=== PATIENT | male | born 1960 | race Caucasian/White ===

== ENCOUNTER 2017-04-20 05:58 | Inpatient (IN) ==
[2017-04-20] MEDS ORDERED: CeFAZolin Syr 2,000MG/20 ML 2,000 MG/20 ML SYRINGE IVPB ONE (06:17)
[2017-04-20] MEDS ORDERED: Albuterol 2.5 MG/3 ML NEBULIZER IH ONE (06:18)
[2017-04-20] MEDS ORDERED: Ringers Solution, Lactated 1,000 ML IVC SCH (06:30)
[2017-04-20] MEDS ORDERED: Plasma-Lyte A (PH 7.4) 1,000 ML IVC SCH (07:00)
[2017-04-20] MEDS ORDERED: Lidocaine -MPF 4% 5 ML AMPUL ONE (07:03)
[2017-04-20] MEDS ORDERED: *HR* Midazolam HCl 2 MG/2 ML VIAL ONE (07:05)
[2017-04-20] MEDS ORDERED: *HR* Propofol 200 MG/20 ML VIAL IVP ONE ×2 (07:05→08:34)
[2017-04-20] MEDS ORDERED: *HR* FentaNYL (PF) 100 MCG/2 ML VIAL ONE ×2 (07:05→08:34)
[2017-04-20] MEDS ORDERED: Ondansetron 4 MG/2 ML VIAL ONE (07:08)
[2017-04-20] MEDS ORDERED: Dexamethasone 4 MG/ML VIAL ONE (07:08)
[2017-04-20] MEDS ORDERED: Lidocaine -MPF 2% 2 ML VIAL ONE ×2 (07:08→10:12)
[2017-04-20] MEDS ORDERED: *HR* Rocuronium Bromide 50 MG/5 ML VIAL ONE (07:08)
[2017-04-20] MEDS ORDERED: *HR* Succinylcholine 200 MG/10 ML VIAL IVP ONE (07:08)
[2017-04-20] MEDS ORDERED: *HR* Remifentanil 2 MG VIAL IVP ONE ×4 (07:13→12:11)
--- NOTE | 2017-04-20 07:34 | History & Physical Report ---
Date of Encounter: 04/20/17 Time of Encounter: 07:33 24 Hour HP Update - Instructions Instructions: If the History and Physical is less than 30 days old and was completed prior to A.M. admission and or procedure and has NOT been updated on calendar day of procedure please complete this update prior to performing procedure. - Update Patient reports changes in Medical Condition: No Changes in examination, assessment, or condition: No Changes in Medication: No Preop tests/diagnostics Reviewed: Yes Pre-Op MRSA Screen: Negative Surgery Remains Indicated: Yes Consent for Planned Operative Procedure(s) Verified: Yes - Pre-Operative Checklist Preoperative Checklist Indicated: No Prophylactic Antibiotic Ordered: Yes Home Medications Include Beta Michaelle: No Beta Michaelle Taken Today (Day of Surgery): No Beta Michaelle Taken Yesterday (Day Prior to Surgery): No Is VTE Prophylaxis Indicated?: Yes
--- NOTE | 2017-04-20 07:40 | Anesthesia Evaluation PreOp ---
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 HX Other Medical History: Denies Any Significant HX, Other (TRUNCAL OBESITY) Anesthesia History: No Prior Anesthetic Complications Alcohol Use: none Drug use: none Medications and Allergies Albuterol Neb [Proventil Neb] 2.5 mg IH Q6H PRN 12/02/15 [History] Albuterol Sulfate [Ventolin Hfa] 2 puff IH Q6H PRN 12/02/15 [History] Budesonide/Formoterol 160/4.5 [Symbicort 160/4.5] 2 puff IH BIDR 12/02/15 [ History] 3 Allergy/AdvReac Type Severity Reaction Status Date / Time naproxen [From Naprosyn] Allergy Swelling Verified 04/20/17 06:19 of Lip/Tongue/Throat gabapentin AdvReac Nausea Verified 04/20/17 06:19 Oxymorphone [From Opana] AdvReac See Verified 04/20/17 06:19 Comments pregabalin [From Lyrica] AdvReac Nightmare Verified 04/20/17 06:19 - Meds/Allergy Pre-op Review Medications Reviewed: Yes Allergies Reviewed: Yes Anesthesia Results - Labs Laboratory Tests 04/12/17 04/12/17 10:20 10:20 Hgb 15.8 Hct 47.9 Plt Count 293 Sodium 139 Potassium 3.9 BUN 12 Creatinine 0.78 - Imaging Additional studies: EKG 11/2015: SINUS RHYTHM Anesthesia Exam O2 Sat Height 1.73 m Height 1.73 m Height 1.73 m Weight 115.666 kg Weight 116 LBS BMI 39 O2 Sat by Pulse Oximetry 97 O2 Sat by Pulse Oximetry 97 Vital Signs Temp Pulse Resp BP Pulse Ox 99.1 F 79 18 127/69 97 04/20/17 06:24 04/20/17 06:24 04/20/17 06:24 04/20/17 06:24 04/20/17 06:24 NPO (# of Hours): > 2300 - HEENT Mallampati: I Teeth: Missing, Poor dentition - [employer]NAGER LOC: Oriented - Cardiac Rhythm: Regular - Pulmonary Breath Sounds: bilateral Rhonchi Respiratory Effort: Symmetrical Anesthesia Assess/Plan ASA Score: 3 Modified [place] Scale for Level of Consciousness: Cooperative, oriented, and tranquil Anesthetic Plan: General Monitoring Plan: Standard Monitors Recovery Plan: PACU Anes Supervising Prov Stmt: I have participated in the evaluation of this patient.
[2017-04-20] MEDS ORDERED: Bacitracin 50,000 UNIT, Polymyxin B Sulfate 500,000 UNIT, Sodium Chloride IRRigation 1,... IR ONE (07:45)
[2017-04-20] MEDS ORDERED: Heparin 1,000 UNITS/500 mL 500 ML ONE (07:58)
[2017-04-20] MEDS ORDERED: Propofol 500 MG/50 ML INFUS..BTL ONE ×6 (08:13→12:36)
[2017-04-20] MEDS ORDERED: Albumin Human 5% 37.5 GM/750 ML VIAL ONE (08:26)
[2017-04-20] MEDS ORDERED: Dexmedetomidine HCl 200 MCG/50 ML MLS IVC ONE (08:45)
[2017-04-20] MEDS ORDERED: *HR* Phenylephrine 10 MG/ML VIAL ONE (09:20)
[2017-04-20 10:56] LABS: Basophils # 0.1 K/mcL (0.0-0.2); Basophils % 0.6 %; Eosinophils # 0.2 K/mcL (0.0-0.6); Eosinophils % 2.1 %; Hematocrit 41.5 % (37.5-50.1); Hemoglobin 14.1 g/dL (12.9-16.9); Immature Granulocytes % 0.8 % (0-4); Lymphocytes # 1.9 K/mcL (0.6-4.6); Lymphocytes % 21.8 %; Mean Corpuscular Hemoglobin 32.6 pg (28.0-33.3); Mean Corpuscular Volume 96.1 fL (83.0-100.0); Mean Platelet Volume 9.3 fL (9.4-12.4); Monocytes # 0.5 K/mcL (0.0-1.3); Monocytes % 5.5 %; Neutrophils # 6.1 K/mcL (1.6-8.9); Platelet Count 319 K/mcL (140-400); Red Blood Count 4.32 M/mcL (4.19-5.50); Segmented Neutrophils % 69.2 %
[2017-04-20] MEDS ORDERED: *HR* Magnesium Sulfate 1 GM/2 ML VIAL ONE (11:00)
[2017-04-20] MEDS ORDERED: Dexamethasone 4 MG/ML VIAL IVP ONE (11:03)
[2017-04-20] MEDS ORDERED: *HR* Labetalol 20 MG/4 ML SYRINGE IVP PRN (11:03)
[2017-04-20] MEDS ORDERED: Ondansetron 4 MG/2 ML VIAL IVP ONE (11:03)
[2017-04-20] MEDS ORDERED: *HR* OxyCODONE Immed Rel 5 MG TABLET PO PRN (11:03)
[2017-04-20 11:10] LABS: Alanine Aminotransferase 11 Units/L (7-52); Albumin 3.4 g/dL (3.5-5.7); Albumin/Globulin Ratio 1.6 (1.1-2.2); Alkaline Phosphatase 60 Units/L (34-104); Aspartate Amino Transferase 14 Units/L (13-39); BUN/Creatinine Ratio 18 (6-26); Bilirubin,Total 0.5 mg/dL (0.3-1.0); Blood Urea Nitrogen 15 mg/dL (6-20); Calcium 8.2 mg/dL (8.6-10.3); Carbon Dioxide 22 mEq/L (23-29); Chloride 109 mEq/L (98-107); Globulin 2.1 g/dL (2.4-3.5); Glucose 98 mg/dL (70-105); Magnesium 1.8 mg/dL (1.6-2.6); Osmolality,Calculated 285 (280-300); Potassium 3.9 mEq/L (3.5-5.1); Sodium 137 mEq/L (136-145); Total Protein 5.5 g/dL (6.4-8.9); eGFR For African Americans > 60 (> 60); eGFR For Non-African Americans > 60 (> 60)
[2017-04-20] MEDS ORDERED: Acetaminophen IV 1,000 MG/100 ML INFUS..BTL ONE (11:31)
[2017-04-20] MEDS ORDERED: *HR* Morphine 10 MG/ML VIAL ONE (12:52)
--- NOTE | 2017-04-20 13:13 | Orthopedic Operative Note ---
Date of procedure: 04/20/17 Pre-op diagnosis: Cervical stenosis, cervical myelopathy Post-op diagnosis: same Operation/Findings: Posterior cervical fusion C3-C7: Patient was brought to the operative theater where he successfully underwent general endotracheal intubation. He was given antibiotics prior to the start of the procedure. Compression boots and stockings were used for deep vein thrombosis prophylaxis. A Steward catheter was placed. Leads were placed on the upper extremities and lower extremities as well as the cranium. The neurologic monitoring personnel confirmed satisfactory readings prior to the start of the procedure. The patient was turned prone on the operative table. The area from the mid occipital to the mid thoracic spine was prepped and draped in the usual sterile fashion posteriorly. An incision was made and centered over the C3-C7 cervical spinous processes in the midline. The scoring incision was deepened through the cervical fascia. We used Bovie cautery and Smith elevators to carefully dissect the lateral masses and expose them from C3-C7. Radiographic confirmation was confirmed by the radiologist via a discussion. We then placed lateral mass screws at C3, C4, C5, C6, and C7 bilaterally using standard techniques. Ten separate 3.5 x 12 mm lateral mass screws were placed uneventfully and confirmed via fluorographic views as having satisfactory placement. After placement of the lateral mass screws, we turned our attention to the decompression. We removed the ligamentum flavum and interspinous and supraspinous ligaments at C6- 7. We proceeded proximally with the decompression. This includes a laminectomy of C6, C5, C4, and C3. All intervening ligamentum flavum and ligamentous material was removed. Bone obtained from the laminectomies was saved in a separate sterile container for later use. After the decompression, the spinal cord could be clearly visualized from C3-C7 and was fully decompressed and expanded. It was seen to expand nicely. We copiously irrigated the wound. We then decorticated the facet joints and lateral masses from C3-4, C4-5, C5-6, and C6-7 bilaterally until bleeding bone was obtained. We then used the autograft bone obtained from the laminectomy/decompression from C3-C7 and placed it over the lateral masses and facet joints in these regions. We then placed rods within the screw heads from C3-C7 bilaterally. We subsequently placed screw caps over the Rods and locked and finally tightened the construct in standard fashion. We then closed the wound in layers with 1 Vicryl for the Fascia, 2-0 Vicryl for the more superficial fascia and 2-0 Vicryl was used for skin closure. Dermabond was paced over the wound. Sterile dressing was placed over the wound as well. Cervical collar was placed. Patient was turned supine and extubated on the Hospital Bed. The patient was in good condition at the end of the procedure. All sponge counts, needle counts, and Instruments were correct at the end of the procedure. Anesthesia: GETA Surgeon: Raul Avalos Jr Was there an drafter assistant present: No Estimated blood loss (cc): 200 Specimen: None Condition: stable Disposition: PACU
[2017-04-20] MEDS: MORPHINE SUL Oral CONC 10 MG/0.5 ML ORAL.SYG SL PRN ×2 (13:32→13:42)
[2017-04-20] MEDS: *HR* Promethazine 25 MG/ML VIAL IVP PRN ×2 (13:54→13:59)
--- NOTE | 2017-04-20 14:24 | Anesthesia Evaluation Post Op ---
Date of Encounter: 04/20/17 Time of Encounter: 14:22 - Vital Signs Vital Signs: REVIEWED Notes: 04/20/17 14:24 Patient's vital signs have been reviewed. Patient is stable postoperatively and has adequately recovered from anesthesia, unless otherwise noted. Patient is determined to have stable airway patency and respiratory function including respiratory rate and oxygen saturation. Patient has a stable heart rate, blood pressure and adequate hydration. Patients mental status is acceptable. Patients temperature is appropriate. Pain and nausea are adequately controlled. - Discharge PostOp Status: Transfer Patient to floor
[2017-04-20] MEDS ORDERED: Acetaminophen 325 MG TABLET PO PRN (14:25)
[2017-04-20] MEDS ORDERED: Ondansetron 4 MG/2 ML VIAL IVP PRN (14:25)
[2017-04-20] MEDS ORDERED: Naloxone 0.4 MG/ML INJ IVP PRN (14:25)
[2017-04-20] MEDS: Ringers Solution, Lactated 1,000 ML IVC SCH ×2 (15:21→23:27)
[2017-04-20] MEDS ORDERED: *HR* OxyCODONE Immed Rel 5 MG TABLET PO SCH (16:00)
[2017-04-20] MEDS ORDERED: *HR* HYDROcodone/Acet 5/325 mg TABLET PO PRN (16:00)
[2017-04-20] MEDS ORDERED: Albuterol 2.5 MG/3 ML NEBULIZER IH PRN (16:00)
[2017-04-20] MEDS: *HR* HYDROcodone/Acet 5/325 mg TABLET PO PRN ×2 (16:28→20:32)
[2017-04-20] MEDS: ceFAZolin 1,000 MG in Water for inj. (sterile) 20 ML 10 ML IVP SCH ×2 (17:16→23:27)
[2017-04-20] MEDS: *HR* OxyCODONE Immed Rel 5 MG TABLET PO PRN ×2 (17:26→21:32)
[2017-04-20] MEDS: Budesonide/Formoterol 160/4.5 MDI IH SCH (20:25)
[2017-04-21] MEDS: *HR* OxyCODONE Immed Rel 5 MG TABLET PO PRN ×2 (01:56→06:37)
[2017-04-21 06:36] VITALS: BP 119/81
[2017-04-21] MEDS: *HR* HYDROcodone/Acet 5/325 mg TABLET PO PRN (09:46)
--- NOTE | 2017-04-21 10:30 | Discharge Summary ---
- NOTES TO OUTPATIENT PROVIDER Notes to Outpatient Provider: Follow-up and [facility] Center in 2 weeks Date of Encounter: 04/21/17 Time of Encounter: 10:27 - Discharge Diagnosis (1) Cervical stenosis of spine Priority: Primary Status: Chronic (2) Cervical myelopathy Priority: Secondary Status: Chronic - Hospital Course Hospital course: Mr. Hernandez is a 56 year old male The patient had an uneventful postoperative course. Progressed from intravenous analgesic needs to oral analgesic needs only. Remained neurovascularly intact and mobilized satisfactorily. All intraoperative and/or postoperative radiographic studies were satisfactory. Patient is discharged with plan for rehabilitation and follow-up in 2 weeks post discharge on analgesic medication and patient's home medications. - Time Spent with Patient Total time spent providing and/or coordinating discharge services: - Discharge Medications Prescriptions: OxyCODONE Immed Rel [Roxicodone 5 MG] 5 mg PO Q4HR PRN 7 Days #30 tablet PRN Reason: Severe Pain Home Medications: Albuterol Neb [Proventil Neb] 2.5 mg IH Q6H PRN 12/02/15 [History] Albuterol Sulfate [Ventolin Hfa] 2 puff IH Q6H PRN 12/02/15 [History] Budesonide/Formoterol 160/4.5 [Symbicort 160/4.5] 2 puff IH BIDR 12/02/15 [ History] OxyCODONE Immed Rel [Roxicodone 5 MG] 5 mg PO Q4HR PRN 7 Days #30 tablet [Rx] Allergies/Adverse Reactions: 3 Allergy/AdvReac Type Severity Reaction Status Date / Time naproxen [From Naprosyn] Allergy Swelling Verified 04/20/17 06:19 of Lip/Tongue/Throat gabapentin AdvReac Nausea Verified 04/20/17 06:19 Oxymorphone [From Opana] AdvReac See Verified 04/20/17 06:19 Comments pregabalin [From Lyrica] AdvReac Nightmare Verified 04/20/17 06:19 Date of admission: 04/20/17 14:24 Primary care physician: Mansoor Sears MD Consults: 04/20/17 14:25 Consult to Occupational Therapy [CONS] Routine Comment: Evaluate, develop and implement POC Reason for Consult: Postoperative rehabilitation Does patient have active BEDREST order?: No Is patient medically & hemodynamically stable?: Yes Patient assessed for mobility or mobilized this visit?: No Consult to Physical Therapy [CONS] Routine Comment: Evaluate, develop and implement POC Reason for Consult: Postoperative rehabilitation Does patient have active BEDREST order?: No Is patient medically & hemodynamically stable?: Yes Patient assessed for mobility or mobilized this visit?: No Consult to Spine Navigator [CONS] [CONS] Routine 04/20/17 15:09 Consult to Nutrition [CONS] Routine Comment: Consulting Provider: NUTRITION Reason for Dietary Consult: MST Score - VTE Documentation of Mechanical Device: Graduated compression elastic hosiery Labs on day of discharge: Labs from last 24 hours 04/20/17 04/20/17 10:35 10:35 WBC 8.8 RBC 4.32 Hgb 14.1 Hct 41.5 MCV 96.1 MCH 32.6 MCHC 34.0 RDW 13.0 Plt Count 319 MPV 9.3 L Immature Gran % 0.8 Seg Neutrophils % 69.2 Lymphocytes % 21.8 Monocytes % 5.5 Eosinophils % 2.1 Basophils % 0.6 Neutrophils # 6.1 Lymphocytes # 1.9 Monocytes # 0.5 Eosinophils # 0.2 Basophils # 0.1 Sodium 137 Potassium 3.9 Chloride 109 H Carbon Dioxide 22 L BUN 15 Creatinine 0.85 Est GFR ( Amer) > 60 Est GFR (Non-Af Amer) > 60 BUN/Creatinine Ratio 18 Glucose 98 Calculated Osmolality 285 Calcium 8.2 L Magnesium 1.8 Total Bilirubin 0.5 AST 14 ALT 11 Alkaline Phosphatase 60 Serum Total Protein 5.5 L Albumin 3.4 L Globulin 2.1 L Albumin/Globulin Ratio 1.6 - Impressions ITS Impressions Cervical Spine X-Ray 04/20/17 00:00 IMPRESSION: Intraprocedural fluoroscopic spot images as above. See separate procedure report for more information. D/ / Steve Stark MD / Steve Stark MD Interpreting Provider: Steve Stark MD Fluoroscopy 04/20/17 00:00 IMPRESSION: Intraprocedural fluoroscopic spot images as above. See separate procedure report for more information. D/ / Steve Stark MD / Steve Stark MD Interpreting Provider: Steve Stark MD Cervical Spine X-Ray 04/21/17 09:14 IMPRESSION: 1. Status post posterior fusion of the cervical spine at C3 through C7. No obvious complication. 2. Degenerative changes at C2-3 as described. D/ : / 04/21/2017 09:19:44 Blanca Maddox MD / marian Interpreting Provider: Blanca Maddox MD - Patient Status Disposition: Home, Self-Care Condition: Good Functional capacity at discharge: independent ambulation Overall status at discharge: patient is progressing back to baseline - Discharge Instructions Follow Up With: Mansoor Sears MD [Primary Care Provider] - - Diet and Activity Activity: as per physical therapy Diet: advance to your usual diet
[2017-04-21] MEDS: Budesonide/Formoterol 160/4.5 MDI IH SCH (10:59)
== END 2017-04-21 12:30 | disposition home health service (06) | DRG 472 ==
LOC: SAMDAY 05:58 → 3NENU 14:24
PROVIDERS: ADMIT Orthopaedic Surgery Orthopaedic Surgery of the Spine; ATTEND Orthopaedic Surgery Orthopaedic Surgery of the Spine

== ENCOUNTER 2019-08-16 17:50 | Observation (INO) ==
[2019-08-16 18:17] LABS: Basophils % 0.2 %; Eosinophils # 0.1 K/mcL (0.0-0.6); Eosinophils % 1.5 %; Hematocrit 47.1 % (37.5-50.1); Hemoglobin 15.8 g/dL (12.9-16.9); Immature Granulocytes % 0.8 % (0-4); Lymphocytes # 1.3 K/mcL (0.6-4.6); Lymphocytes % 14.6 %; Mean Corpuscular HGB Conc 33.5 g/dL (31.6-35.5); Mean Corpuscular Hemoglobin 33.5 pg (28.0-33.3); Mean Platelet Volume 9.5 fL (9.4-12.4); Monocytes # 0.5 K/mcL (0.0-1.3); Monocytes % 5.8 %; Neutrophils # 6.9 K/mcL (1.6-8.9); Platelet Count 238 K/mcL (140-400); Red Blood Count 4.71 M/mcL (4.19-5.50); Red Cell Distribution Width 13.7 % (11.5-14.5); Segmented Neutrophils % 77.1 %; White Blood Count 8.9 K/mcL (4.3-11.1)
[2019-08-16] MEDS ORDERED: cefTRIAXone 1,000 MG in Water for inj. (sterile) 10 ML IVP ONE (18:19)
[2019-08-16 18:42] LABS: Alanine Aminotransferase 17 Units/L (7-52); Albumin 3.9 g/dL (3.5-5.7); Albumin/Globulin Ratio 1.4 (1.1-2.2); Alkaline Phosphatase 78 Units/L (34-104); Aspartate Amino Transferase 11 Units/L (13-39); BUN/Creatinine Ratio 15 (6-26); Bilirubin,Direct 0.1 mg/dL (0.0-0.2); Bilirubin,Indirect 0.4 mg/dL (0.0-1.0); Bilirubin,Total 0.5 mg/dL (0.3-1.0); Blood Urea Nitrogen 11 mg/dL (6-20); C-Reactive Protein 11 mg/L (Less than 10); Calcium 8.8 mg/dL (8.6-10.3); Carbon Dioxide 27 mEq/L (23-29); Chloride 105 mEq/L (98-107); Creatine Kinase 117 Units/L (30-223); Globulin 2.7 g/dL (2.4-3.5); Glucose 80 mg/dL (70-105); Osmolality,Calculated 284 (280-300); Potassium 3.7 mEq/L (3.5-5.1); Sodium 138 mEq/L (136-145); Total Protein 6.6 g/dL (6.4-8.9); Troponin I < 0.03 ng/mL (< 0.04); eGFR For African Americans > 60 (> 60); eGFR For Non-African Americans > 60 (> 60)
[2019-08-16 19:00] LABS: Ferritin 285 ng/mL (20-250)
[2019-08-16] MEDS ORDERED: Isovue-370 500 ML BOTTLE IVP ONE (19:27)
[2019-08-16 20:22] LABS: Bilirubin,Urine Negative (Negative); Blood,Urine Negative (Negative); Clarity,Urine Clear (Clear); Color,Urine Light-Yellow (Yellow); Glucose,Urine (UA) Normal (Normal); Ketones,Urine Negative (Negative); Leukocyte Esterase,Urine Negative (Negative); Nitrite,Urine Negative (Negative); Protein,Urine Negative (Neg-Trace); Specific Gravity,Urine 1.025 (1.010-1.025); Urobilinogen,Urine Normal (Normal)
[2019-08-16 21:15] LABS: Adenovirus Not Detected (Not Detect); Bordetella Pertussis Not Detected (Not Detect); Chlamydophila pneumoniae Not Detected (Not Detect); Coronavirus 229E Not Detected (Not Detect); Coronavirus HKU1 Not Detected (Not Detect); Coronavirus NL63 Not Detected (Not Detect); Coronavirus OC43 Not Detected (Not Detect); Human Metapneumovirus Not Detected (Not Detect); Human Rhinovirus/Enterovirus Not Detected (Not Detect); Influenza A Subtype 2009 H1 Not Detected (Not Detect); Influenza B Not Detected (Not Detect); Mycoplasma pneumoniae Not Detected (Not Detect); Parainfluenza Virus 1 Not Detected (Not Detect); Parainfluenza Virus 2 Not Detected (Not Detect); Parainfluenza Virus 3 Not Detected (Not Detect); Parainfluenza Virus 4 Not Detected (Not Detect); Respiratory Syncytial Virus Not Detected (Not Detect)
[2019-08-16] MEDS ORDERED: Aspirin 325 MG TABLET PO ONE (21:20)
[2019-08-17] MEDS ORDERED: Naloxone 0.4 MG/ML INJ IVP PRN (03:20)
[2019-08-17] MEDS ORDERED: Albuterol 2.5 MG/3 ML NEBULIZER IH PRN (03:22)
[2019-08-17] MEDS ORDERED: Perflutren Lipid Microsphere 1.3 ML in 0.9 % Sodium Chloride 8.7 ML IVP PRN (03:24)
[2019-08-17] MEDS: Furosemide 40 MG/4 ML VIAL IVP SCH (03:54)
[2019-08-17] MEDS: Ipratropium/Albuterol Neb 3 ML IH SCH ×4 (04:05→22:28)
[2019-08-17 04:34] LABS: Hematocrit 43.1 % (37.5-50.1); Hemoglobin 14.6 g/dL (12.9-16.9); Mean Corpuscular HGB Conc 33.9 g/dL (31.6-35.5); Mean Corpuscular Hemoglobin 34.7 pg (28.0-33.3); Mean Corpuscular Volume 102.4 fL (83.0-100.0); Mean Platelet Volume 9.4 fL (9.4-12.4); Platelet Count 208 K/mcL (140-400); Red Blood Count 4.21 M/mcL (4.19-5.50); Red Cell Distribution Width 13.7 % (11.5-14.5)
[2019-08-17 04:55] LABS: BUN/Creatinine Ratio 14 (6-26); Blood Urea Nitrogen 10 mg/dL (6-20); Calcium 8.9 mg/dL (8.6-10.3); Carbon Dioxide 26 mEq/L (23-29); Chloride 106 mEq/L (98-107); Chol/HDL Ratio 3.7 (0-4.9); Cholesterol 149 mg/dL (< 200); Glucose 87 mg/dL (70-105); HDL Cholesterol 40 mg/dL (40-59); LDL Cholesterol,Calculated 88 mg/dL (< 100); Magnesium 2.1 mg/dL (1.6-2.6); Osmolality,Calculated 284 (280-300); Phosphorous 2.7 mg/dL (2.7-4.5); Potassium 3.6 mEq/L (3.5-5.1); Sodium 138 mEq/L (136-145); Triglycerides 106 mg/dL (< 150); eGFR For African Americans > 60 (> 60); eGFR For Non-African Americans > 60 (> 60)
[2019-08-17] MEDS: *HR* Heparin 5,000 UNIT/ML VIAL SQ SCH ×2 (05:41→17:40)
[2019-08-17] MEDS: predniSONE 20 MG TABLET PO SCH (08:22)
[2019-08-17] MEDS ORDERED: Vancomycin (wt based) 1,000 MG VIAL IVPB SCH (09:00)
[2019-08-17] MEDS ORDERED: cefTRIAXone 1,000 MG in Water for inj. (sterile) 10 ML IVP SCH (09:00)
[2019-08-17] MEDS ORDERED: Aminoglycoside Consult 1 EACH MC ONE (09:37)
[2019-08-17] MEDS: Vancomycin 1,750 MG/517.5 ML IV.SOLN IVPB SCH ×2 (10:12→21:05)
[2019-08-17] MEDS: *HR* OxyCODONE/APAP 10/325 TABLET PO PRN ×3 (10:27→23:44)
[2019-08-18] MEDS: Ipratropium/Albuterol Neb 3 ML IH SCH (04:19)
[2019-08-18] MEDS: *HR* Heparin 5,000 UNIT/ML VIAL SQ SCH (05:26)
[2019-08-18 07:04] VITALS: BP 136/67
[2019-08-18] MEDS: Vancomycin 1,750 MG/517.5 ML IV.SOLN IVPB SCH (08:05)
[2019-08-18] MEDS: Furosemide 40 MG/4 ML VIAL IVP SCH (08:05)
[2019-08-18] MEDS: predniSONE 20 MG TABLET PO SCH (08:05)
== END 2019-08-18 09:38 | disposition home or self-care (01) ==
LOC: 3BNU 17:50 → EMEROOARM 17:50 → 3BNU 22:18
PROVIDERS: ADMIT Family Medicine; ATTEND Family Medicine